=== PATIENT | female | born 1940 | race Caucasian/White ===

== ENCOUNTER 2017-06-29 16:23 | Inpatient (IN) | payer MEDICARE, MEDICAID ==
[~2017-06-29] VITALS: Ht 165.1 cm; Wt 64.9 kg
--- NOTE | 2017-06-29 16:40 | NUR ---
PT BIB RA FROM [facility] FOR ABNORMAL "BREATHING SOUNDS" AND WARM TO TOUCH. NOTE AMS. SEEN BY MD FOR EVAL. SAFETY AND COMFORT MEASURES PROVIDED. WILL MONITOR.
--- NOTE | 2017-06-29 16:45 | NUR ---
IV ACCESS STARTED. BLOOD DRAWN FOR LABS.
[2017-06-29] MEDS ORDERED: MULT-24 PO (16:51)
[2017-06-29] MEDS ORDERED: ACET-868 PO (16:51)
[2017-06-29] MEDS ORDERED: MAGN400O6 PO (16:51)
[2017-06-29] MEDS ORDERED: CHOL100044 PO (16:51)
[2017-06-29] MEDS ORDERED: BLOO-668 IN (16:51)
[2017-06-29] MEDS ORDERED: BISA-79 PO (16:51)
[2017-06-29] MEDS ORDERED: LEVE250T2 PO (16:51)
[2017-06-29] MEDS ORDERED: BENA20TA2 PO (16:51)
[2017-06-29 16:55] LABS: BASOPHILS # (AUTO) 0.4 /CMM (0.0-0.2); BASOPHILS % (AUTO) 3.2 % (0.0-2.0); EOSINOPHILS # (AUTO) 0.2 /CMM (0.0-0.7); EOSINOPHILS % (AUTO) 1.1 % (0.0-6.0); HEMATOCRIT 42 % (33-45); HEMOGLOBIN 14.1 g/dL (11.5-14.8); LYMPHOCYTES # (AUTO) 1.5 /CMM (0.8-4.8); LYMPHOCYTES % (AUTO) 10.4 % (20.0-44.0); MEAN CORPUSCULAR HEMOGLOBIN 30 PG (26.0-33.0); MEAN CORPUSCULAR HGB CONC 34 g/dl (31.0-36.0); MEAN CORPUSCULAR VOLUME 88 fL (82-100); MONOCYTES # (AUTO) 0.4 /CMM (0.1-1.30); MONOCYTES % (AUTO) 2.7 % (2.0-12.0); NEUTROPHILS # (AUTO) 11.5 /CMM (1.8-8.9); NEUTROPHILS % (AUTO) 82.6 % (43.0-81.0); PLATELET COUNT (AUTO) 418 /CMM (150-450); RDW COEFFICIENT OF VARIATION 12.7 (11.5-15.0); RED BLOOD CELL COUNT(AUTO) 4.74 MIL/uL (4.0-5.2)
--- NOTE | 2017-06-29 16:55 | NUR ---
URINE SAMPLE OBTAINED, SENT. PT MEDICATED ORDERED.
[2017-06-29] MEDS ORDERED: LEVOFLOXACIN 750 MG /D5W 150ML 150 ML IV ONE ×2 (16:57→17:00)
[2017-06-29] MEDS ORDERED: IV NS 0.9% 1,000 ML BAG IV ONE (17:00)
[2017-06-29] MEDS ORDERED: CEFTRIAXONE 1GM BAG (ER ONLY) 50 ML IV ONE (17:00)
[2017-06-29] MEDS ORDERED: VANCOMYCIN 1 GM in IV D5W 250 ML IV ONE (17:00)
--- NOTE | 2017-06-29 17:00 | NUR ---
CALLED NURSING SUP. FOR MARTIN BED
[2017-06-29 17:12] LABS: CALCIUM, SERUM 9.1 mg/dL (8.5-10.1); CARBON DIOXIDE 22 mmol/L (21-32); CHLORIDE 97 mmol/L (98-107); GLUCOSE 138 mg/dL (74-106); POTASSIUM 4.2 mmol/L (3.5-5.1); SODIUM SERUM 130 mmol/L (136-145); UREA NITROGEN, BLOOD 21 mg/dL (7-18)
[2017-06-29 17:16] LABS: INR 1.04 (0.87-1.13); PROTHROMBIN TIME 10.8 SECS (9.5-12.7)
[2017-06-29 17:19] LABS: APPEARANCE,URINE Clear (CLEAR); BILIRUBIN,URINE Negative (NEGATIVE); BLOOD, URINE Negative Ery/uL (NEGATIVE); COLOR,URINE Yellow (YELLOW); KETONES,URINE Negative (NEGATIVE); LEUKOCYTE ESTERASE ,URINE Trace (NEGATIVE); NITRITE, URINE Negative (NEGATIVE); PROTEIN,URINE Trace mg/dl (NEGATIVE); UGLUCOSE Negative (NEGATIVE); UROBILINOGEN,URINE 0.2 EU/dL (0.2)
[2017-06-29 17:22] LABS: TROPONIN I < 0.017 ng/mL (0.00-0.056)
[2017-06-29 17:40] LABS: RBC,URINE 0-2 /HPF (0-2)
[2017-06-29 17:41] LABS: BACTERIA,URINE Moderate /HPF (None Seen); SQUAMOUS EPITHELIAL CELL,UR Many /HPF (None Seen)
--- NOTE | 2017-06-29 18:08 | NUR ---
REPORT GIVEN TO EDSON ROMANO FOR MARTIN [id number]
--- NOTE | 2017-06-29 18:21 | NUR ---
DR DE LA VEGA ON THE PHONE WITH NUHA DUPONT, SAFETY SUPERVISOR FOR DR BRIONES
[2017-06-29 18:50] VITALS: BP 192/105
--- NOTE | 2017-06-29 18:55 | NUR ---
RN NOTE RECEIVED PT ON BED, AOX1, NONVERBAL, SNORING, ON ROOM AIR, SATURATION 93%, NO SOB, ON MOBILE TESTER, SR, 94, BP HIGH, 192/107 MMHG, IV R HAND 18 G, INTACT, INFUSING VANCOMYCIN, DR BRIONES EXCHANGE CALLED TO GET ORDERS. SAFETY MAINTAINED, BED ALARM ON, BED IN LOW AND LOCKED POSITION, CALL LIGHT WITHIN REACH WILL ENDORSE TO SENIOR ACCOUNTANT ANALYST NURSE.
[2017-06-29] MEDS ORDERED: IPRATROPIUM NEB FS 0.5 MG/2.5 ML AMPUL.NEB NEB PRN (19:30)
[2017-06-29] MEDS ORDERED: *INSULIN REGULAR(HUMULIN R)HUM 100 UNIT/ML VIAL SQ PRN (19:30)
[2017-06-29] MEDS ORDERED: DEXTROSE 50%-WATER 50 ML DISP.SYRIN IV PRN (19:30)
[2017-06-29] MEDS ORDERED: IV NS 0.9% 1,000 ML BAG IV PRN (19:30)
[2017-06-29] MEDS ORDERED: ENALAPRILAT DIHYD. (2.5MG/ML) 1.25 MG/ML VIAL IV ONE (19:30)
[2017-06-29] MEDS ORDERED: ALBUTEROL FS 2.5 MG/0.5 ML VIAL.NEB NEB PRN (19:30)
[2017-06-29 20:00] VITALS: BP 181/98
--- NOTE | 2017-06-29 20:00 | NUR ---
MARTIN RN NOTES ]RECEIVED PTS ON BED AWAKE AND RESPONSIVE .NON VERBAL .ON TELE SR ON THE MONITOR ,ON R/.A SATING 97% .NO SOB NO DISTRESS NOTED , ADMITTED WITH DX. OF ALOC , UNDER DR BRIONES , PTS IS NPO STATUS AT THIS TIME FOR SWALLOW EVAL IN AM. V/S BP 181/98 - VASOTEC 2.5 MG GIVEN IV X1 ORDERED , PTS IS AFEBRILE , ALL ORDER CARRIED OUT , ALL NEEDS ATTENDED TO CALL LIGHT WITHIN REACH KEPT PTS CLEAN DRY AND COMFORTABLE, BODY CHECK DONE , ONLY LEFT FA SCAB NOTED , ON IV HEPLOCK ON R HAND G#18 INTACT AND PATENT IVF OF NS AT 70CC/HR WELL TOLERATED, WILL CONTINUE TO MONITOR BLOOD PRESSURE.
[2017-06-29 20:11] LABS: BILIRUBIN,TOTAL 0.2 mg/dL (0.2-1.0)
[2017-06-29 21:00] VITALS: BP 160/76
[2017-06-29] MEDS: IV NS 0.9% 1,000 ML IV PRN (21:07)
[2017-06-29] MEDS: BLOOD SUGAR DIAGNOSTIC 1 EACH STRIP VI SCH (22:43)
[2017-06-29 23:48] VITALS: BP 170/89
[2017-06-30] VITALS (8 sets, daily range): BP systolic 127–170; BP diastolic 56–93
[2017-06-30] MEDS: ENALAPRILAT INJ (1.25 MG/ML) 1.25 MG/ML VIAL IV PRN ×2 (00:41→09:16)
--- NOTE | 2017-06-30 06:22 | NUR ---
jazlyn rn notes pts remains on ivf ns at 70cc/hr infusing well npo status , will endorse to rn day shift re advance directives - dnr to be order by md ,and home medication po if to be continue ,pts last bp is 158/86. for swallow eval today.
[2017-06-30] MEDS: BLOOD SUGAR DIAGNOSTIC 1 EACH STRIP VI SCH ×2 (07:06→13:19)
[2017-06-30] MEDS: INSULIN REGULAR, HUMAN 100 UNIT/ML 3 ML VIAL SQ PRN ×3 (07:08→17:10)
--- NOTE | 2017-06-30 07:08 | NUR ---
MARTIN RN NOTES BLOOD SUGAR FOR 730AM IS 130 MG/DL =NO INSULIN COVERAGE GIVEN PTS REMAINS ON IV FLUIDS AND NPO STATUS.ENDORSE TO RN DAY SHIFT .
--- NOTE | 2017-06-30 07:15 | NUR ---
MARTIN RN INITIAL NOTES: REC'D PT ON BED, NOT IN ANY DISTRESS, NON VERBAL. PT ON ROOM AIR, NO SOB BUT NOTED TO HAVE SECRETIONS ON MOUTH, SUCTIONED PRN. ON TELEMONITOR, HAS Irish LACY G18 PL W/ NS AT 70 CC/HR INFUSING WELL W/ NO S/SX OF INFECTION/ INFILTRATION NOTED. PROVIDED COMFORT & SAFETY MEASURES. BED KEPT LOW & IN LOCKED POS. CALL LIGHT PLACED W/IN REACH. HOB KEPT ELEVATED. WILL CONTINUE TO MONITOR. Addendum: 07/01/17 at 0849 by POLINA GUTIERREZ RN CORRECTION: HAS Nancy LACY G18 PL.
[2017-06-30] MEDS ORDERED: CEFTRIAXONE 1GM BAG (ER ONLY) 1 GM/50 ML PIGGYBACK IV SCH (09:00)
--- NOTE | 2017-06-30 10:00 | NUR ---
RN NOTES: SPOKE W/ ALEK ([phone]), CONFIRMED DNR CODE STATUS. DR. WALLS (RN PERITONEAL DIALYSIS FOR DR. BRIONES) MADE AWARE.
[2017-06-30] MEDS ORDERED: hydrALAZINE HCL IV 20 MG VIAL IV PRN (12:00)
[2017-06-30] MEDS ORDERED: CEFEPIME 1 GM in IV D5W 50 ML IV SCH (12:00)
--- NOTE | 2017-06-30 12:01 | NUR ---
RN NOTES: DR. WALLS MADE AWARE THAT AT [facility] PT WAS ON PUREED MICHAELA DIET. MD ORDERED TO KEEP NS 1L X 70 CC/HR FOR NOW. ST TO EVALUATE SWALLOW.
--- NOTE | 2017-06-30 12:30 | NUR ---
RN NOTES: DR. WALLS MADE AWARE THAT PT FAILED SWALLOW EVALUATION, ORDERED TO KEEP PT NPO FOR NOW AND KEEP IVF NS.
[2017-06-30] MEDS ORDERED: FEE PK DOSING 1 MIN EA MC ONE (12:41)
[2017-06-30] MEDS: IPRATROPIUM NEB FS 0.5 MG/2.5 ML AMPUL.NEB NEB SCH ×2 (13:02→19:30)
[2017-06-30] MEDS: FAMOTIDINE/PF INJ 20 MG/2 ML VIAL IV SCH (13:03)
[2017-06-30] MEDS: IV NS 0.9% 1,000 ML IV PRN (13:03)
[2017-06-30] MEDS: ALBUTEROL FS 2.5 MG/3 ML VIAL.NEB NEB SCH ×2 (13:03→19:30)
[2017-06-30] MEDS: LEVETIRACETAM (500MG) 250 MG in IV NS 0.9% 100 ML IV SCH ×2 (13:03→21:15)
[2017-06-30] MEDS: ENOXAPARIN SODIUM 40 MG/0.4 ML DISP.SYRIN SQ SCH (13:05)
[2017-06-30] MEDS: VANCOMYCIN 1 GM in IV D5W 250 ML IV SCH (13:20)
[2017-06-30] MEDS: CEFEPIME 1 GM in IV D5W 50 ML IV SCH (14:15)
[2017-06-30] MEDS ORDERED: DEXTROSE 50%-WATER 50 ML DISP.SYRIN IV PRN (15:00)
[2017-06-30] MEDS ORDERED: CEFTRIAXONE 1 G in IV D5W 50 ML IV SCH (17:00)
[2017-06-30] MEDS: BLOOD SUGAR DIAGNOSTIC 1 EACH STRIP IN SCH (17:09)
[2017-06-30] MEDS ORDERED: BLOOD SUGAR DIAGNOSTIC 1 EACH STRIP VI SCH (18:00)
--- NOTE | 2017-06-30 18:52 | NUR ---
MARTIN RN CLOSING NOTES: NO ACUTE CHANGES NOTED W/IN SHIFT. PT IS MORE AWAKE. SATURATING 100% WHILE ON O2 AT 2LPM/NC . SECRETIONS SUCTIONED. RFA G22 PL KEPT PATENT & INTACT W/ NS AT 70 CC/HR INFUSING WELL W/ NO S/SX OF INFECTION/ INFILTRATION NOTED. KEPT NPO DUE TO FAILED SWALLOW TEST. KEPT WELL RESTED. BED KEPT LOW & IN LOCKED POS. CALL LIGHT PLACED W/IN REACH. NEEDS ATTENDED. ENDORSED TO PM RN FOR JAYLEEN.
[2017-07-01] VITALS: BP 99/50
[2017-07-01] MEDS: BLOOD SUGAR DIAGNOSTIC 1 EACH STRIP IN SCH ×4 (00:09→18:04)
--- NOTE | 2017-07-01 02:26 | NUR ---
RN NOTES 0145 BLOOD CULTURE GRAM POSITIVE COCCI; ON VANCOMYCIN AND CEFEPIME WILL NOTIFY
[2017-07-01 04:00] VITALS: BP_SYST 130; BP_SYST 99; BP_DIAS 50; BP_DIAS 72
[2017-07-01] MEDS: IV NS 0.9% 1,000 ML IV PRN (06:00)
--- NOTE | 2017-07-01 06:50 | NUR ---
RN NOTES Condition unchanged during the night. Remains on NPO; po trial by ST only. Continue on IVF and antibiotics as ordered.IV site RFA patent and intact. Continue to require oxygen. Repositioned every 2hrs. Needs anticipated.
[2017-07-01] MEDS: VANCOMYCIN 1 GM in IV D5W 250 ML IV SCH (07:00)
[2017-07-01 07:07] LABS: BASOPHILS # (AUTO) 0.1 /CMM (0.0-0.2); BASOPHILS % (AUTO) 0.6 % (0.0-2.0); EOSINOPHILS # (AUTO) 0.1 /CMM (0.0-0.7); EOSINOPHILS % (AUTO) 1.6 % (0.0-6.0); HEMATOCRIT 36 % (33-45); HEMOGLOBIN 12.7 g/dL (11.5-14.8); LYMPHOCYTES # (AUTO) 2.1 /CMM (0.8-4.8); LYMPHOCYTES % (AUTO) 23.2 % (20.0-44.0); MEAN CORPUSCULAR HEMOGLOBIN 31 PG (26.0-33.0); MEAN CORPUSCULAR HGB CONC 35 g/dl (31.0-36.0); MEAN CORPUSCULAR VOLUME 89 fL (82-100); MONOCYTES # (AUTO) 0.9 /CMM (0.1-1.30); MONOCYTES % (AUTO) 10.2 % (2.0-12.0); NEUTROPHILS # (AUTO) 5.7 /CMM (1.8-8.9); NEUTROPHILS % (AUTO) 64.4 % (43.0-81.0); PLATELET COUNT (AUTO) 322 /CMM (150-450); RDW COEFFICIENT OF VARIATION 13.5 (11.5-15.0); RED BLOOD CELL COUNT(AUTO) 4.08 MIL/uL (4.0-5.2); WHITE BLOOD COUNT (AUTO) 8.9 K/uL (4.3-11.0)
--- NOTE | 2017-07-01 07:10 | NUR ---
MARTIN RN INITIAL NOTES: REC'D PT ON BED, NOT IN ANY DISTRESS, NON VERBAL, AWAKE. PT ON O2 AT 2LPM/NC, NO SOB. ON TELEMONITOR, SR. HAS RFA G22 PL W/ NS AT 70 CC/HR INFUSING WELL W/ NO S/SX OF INFECTION/ INFILTRATION NOTED. PROVIDED COMFORT & SAFETY MEASURES. BED KEPT LOW & IN LOCKED POS. CALL LIGHT PLACED W/IN REACH. HOB ELEVATED. WILL CONTINUE TO MONITOR.
[2017-07-01] MEDS: ALBUTEROL FS 2.5 MG/3 ML VIAL.NEB NEB SCH ×3 (07:13→19:20)
[2017-07-01] MEDS: IPRATROPIUM NEB FS 0.5 MG/2.5 ML AMPUL.NEB NEB SCH ×3 (07:14→19:20)
[2017-07-01 07:29] LABS: ALANINE AMINOTRANSFERASE 18 U/L (12-78); ALBUMIN 2.8 g/dL (3.4-5.0); ALKALINE PHOSPHATASE 101 U/L (46-116); ASPARTATE AMINOTRANSFERASE 19 U/L (15-37); BILIRUBIN,TOTAL 0.5 mg/dL (0.2-1.0); CALCIUM, SERUM 8.6 mg/dL (8.5-10.1); CARBON DIOXIDE 27 mmol/L (21-32); CHLORIDE 105 mmol/L (98-107); CREATININE 0.8 mg/dL (0.6-1.3); GLUCOSE 93 mg/dL (74-106); POTASSIUM 4.1 mmol/L (3.5-5.1); SODIUM SERUM 138 mmol/L (136-145); TOTAL PROTEIN, SERUM 6.7 g/dL (6.4-8.2); UREA NITROGEN, BLOOD 10 mg/dL (7-18)
[2017-07-01 07:38] LABS: THYROID STIMULATING HORMONE 1.442 uIU/mL (0.358-3.74)
[2017-07-01 08:00] VITALS: BP 135/69
[2017-07-01] MEDS: FAMOTIDINE/PF INJ 20 MG/2 ML VIAL IV SCH (08:27)
[2017-07-01] MEDS: ENOXAPARIN SODIUM 40 MG/0.4 ML DISP.SYRIN SQ SCH (08:34)
--- NOTE | 2017-07-01 09:40 | NUR ---
RN NOTES: PT SEEN & EXAMINED BY DR. WALLS W/ ORDERS - RN TO TRY EVALUATE SWALLOW PT AGAIN.
[2017-07-01] MEDS: LEVETIRACETAM (500MG) 250 MG in IV NS 0.9% 100 ML IV SCH ×2 (09:44→20:49)
--- NOTE | 2017-07-01 10:00 | NUR ---
RN NOTES: TRIED DOING SWALLOW EVALUATION TO THE PT PER MD'S ORDER. PT IS MORE AWAKE NOW BUT PT IS REFUSING TO OPEN HER MOUTH, STILL NOTED COUGHING WHEN GIVEN SMALL AMOUNT. WILL RE-ORDER SWALLOW EVALUATION.
[2017-07-01] MEDS: IV D5/ 0.9% NACL 1,000 ML IV SCH (10:15)
[2017-07-01 12:00] VITALS: BP 147/62
[2017-07-01] MEDS: INSULIN REGULAR, HUMAN 100 UNIT/ML 3 ML VIAL SQ PRN ×2 (12:30→18:06)
[2017-07-01] MEDS: CEFEPIME 1 GM in IV D5W 50 ML IV SCH (13:06)
[2017-07-01 16:00] VITALS: BP 147/67
[2017-07-01] MEDS: VANCOMYCIN 0.75 GM in IV D5W 250 ML IV SCH (18:04)
--- NOTE | 2017-07-01 19:04 | NUR ---
MARTIN RN CLOSING NOTES: NO ACUTE CHANGES NOTED W/IN SHIFT. PT IS MORE AWAKE. SATURATING 100% WHILE ON O2 AT 2LPM/NC . SECRETIONS SUCTIONED. RFA G22 PL KEPT PATENT & INTACT W/ D5NS AT 50 CC/HR INFUSING WELL W/ NO S/SX OF INFECTION/ INFILTRATION NOTED. STILL KEPT NPO. KEPT WELL RESTED. BED KEPT LOW & IN LOCKED POS. CALL LIGHT PLACED W/IN REACH. NEEDS ATTENDED. ENDORSED TO PM RN FOR JAYLEEN.
[2017-07-01 20:00] VITALS: BP 149/77
--- NOTE | 2017-07-01 21:01 | NUR ---
SPORTS CENTRE MANAGER: RECEIVED PT NOT IN ANY DISTRESS, NON VERBAL, AWAKE. PT ON O2 AT 2LPM/NC, NO SOB. ON TELE MONITOR SHOWS SR. HAS RFA G22 RUNNING D5NS AT 50 ML/HR INFUSING WELL W/ NO S/SX OF INFECTION/ INFILTRATION NOTED. PROVIDED COMFORT & SAFETY MEASURES. BED KEPT LOW & IN LOCKED POS. CALL LIGHT PLACED W/IN REACH. HOB ELEVATED. ALL NEEDS ATTENDED. KEEP MONITORING....
[2017-07-02] VITALS: BP 133/90
[2017-07-02] MEDS: BLOOD SUGAR DIAGNOSTIC 1 EACH STRIP IN SCH ×4 (00:17→17:24)
[2017-07-02 04:00] VITALS: BP 145/66
[2017-07-02] MEDS: VANCOMYCIN 0.75 GM in IV D5W 250 ML IV SCH ×2 (05:11→18:05)
[2017-07-02] MEDS: IV D5/ 0.9% NACL 1,000 ML IV SCH (05:12)
[2017-07-02 07:08] LABS: BASOPHILS # (AUTO) 0.1 /CMM (0.0-0.2); BASOPHILS % (AUTO) 0.7 % (0.0-2.0); EOSINOPHILS # (AUTO) 0.2 /CMM (0.0-0.7); EOSINOPHILS % (AUTO) 3.1 % (0.0-6.0); HEMATOCRIT 34 % (33-45); HEMOGLOBIN 11.8 g/dL (11.5-14.8); LYMPHOCYTES # (AUTO) 1.5 /CMM (0.8-4.8); MEAN CORPUSCULAR HEMOGLOBIN 31 PG (26.0-33.0); MEAN CORPUSCULAR HGB CONC 35 g/dl (31.0-36.0); MEAN CORPUSCULAR VOLUME 88 fL (82-100); MONOCYTES # (AUTO) 0.7 /CMM (0.1-1.30); MONOCYTES % (AUTO) 9.1 % (2.0-12.0); NEUTROPHILS # (AUTO) 5.2 /CMM (1.8-8.9); NEUTROPHILS % (AUTO) 68.1 % (43.0-81.0); PLATELET COUNT (AUTO) 282 /CMM (150-450); RDW COEFFICIENT OF VARIATION 13.4 (11.5-15.0); RED BLOOD CELL COUNT(AUTO) 3.82 MIL/uL (4.0-5.2); WHITE BLOOD COUNT (AUTO) 7.6 K/uL (4.3-11.0)
[2017-07-02] MEDS: ALBUTEROL FS 2.5 MG/3 ML VIAL.NEB NEB SCH ×3 (07:35→20:13)
[2017-07-02] MEDS: IPRATROPIUM NEB FS 0.5 MG/2.5 ML AMPUL.NEB NEB SCH ×3 (07:35→20:13)
[2017-07-02 07:42] LABS: CARBON DIOXIDE 27 mmol/L (21-32); CHLORIDE 104 mmol/L (98-107); CREATININE 0.7 mg/dL (0.6-1.3); GLUCOSE 115 mg/dL (74-106); POTASSIUM 3.8 mmol/L (3.5-5.1); SODIUM SERUM 138 mmol/L (136-145); UREA NITROGEN, BLOOD 8 mg/dL (7-18)
[2017-07-02 08:00] VITALS: BP 145/64
[2017-07-02] MEDS: LEVETIRACETAM (500MG) 250 MG in IV NS 0.9% 100 ML IV SCH ×2 (09:32→21:24)
[2017-07-02] MEDS: ENOXAPARIN SODIUM 40 MG/0.4 ML DISP.SYRIN SQ SCH (09:35)
[2017-07-02] MEDS: FAMOTIDINE/PF INJ 20 MG/2 ML VIAL IV SCH (10:13)
--- NOTE | 2017-07-02 11:00 | NUR ---
WOUND CARE CONSULT PATIENT SEEN AND SKIN INTEGRITY ASSESSMENT DONE. PATIENT PRESENTS WITH INTACT SKIN AT THIS TIME. PATIENT WITH CURRENT MADDIE AT 9. PATIENT ON GELY ISOFLEX LOW AIRLOSS SPECIALTY BED FOR SKIN MANAGEMENT. RECOMMEND TURNING SCHED Q 2 HOURS, BILATERAL HEEL FLOATING, Z GUARD FOR SKIN/MOISTURE MANAGEMENT. ALL DISCUSSED WITH NURSING AND DIRECTOR OF OPERATIONS HOME HEALTH AT THE BEDSIDE. WILL SEE PRN. Addendum: 07/02/17 at 1103 by LIZZ IBRAHIM WNDNU Amended: Links added.
[2017-07-02] MEDS ORDERED: Z GUARD REMEDY 2 OZ OINT TP PRN (11:30)
[2017-07-02 12:00] VITALS: BP 134/58
[2017-07-02] MEDS: Z GUARD REMEDY 2 OZ OINT TP SCH (12:22)
[2017-07-02] MEDS: CEFEPIME 1 GM in IV D5W 50 ML IV SCH (13:31)
[2017-07-02 16:00] VITALS: BP 152/63
[2017-07-02 20:00] VITALS: BP 161/74
--- NOTE | 2017-07-02 20:00 | NUR ---
MARTIN RN NOTE PT IN BED ASLEEP, AROUSABLE, NON VERBAL. NO DISTRESS OR DISCOMFORT NOTED. NO S/S OF PAIN NOTED. IVF D5NS @ 50 ML/HR INFUSING WELL, NO S/S OF INFILTRATION NOTED. ON TELE SR HR 94. VSS. REPOSITION HER FOR SKIN MANAGEMENT AND COMFORT. SIDE RAILS UP X 2 AND CALL LIGHT WITHIN REACH. CONTINUE TO MONITOR HER.
[2017-07-03] VITALS (8 sets, daily range): BP systolic 106–167; BP diastolic 57–75
[2017-07-03] MEDS: IV D5/ 0.9% NACL 1,000 ML IV SCH (04:45)
[2017-07-03] MEDS: VANCOMYCIN 0.75 GM in IV D5W 250 ML IV SCH ×2 (05:54→17:47)
--- NOTE | 2017-07-03 06:42 | NUR ---
MARTIN RN NOTE NO CHANGE IN CONDITION. NO DISTRESS OR DISCOMFORT NOTED. ON TELE SR. SIDE RAILS UP X 3 AND CALL LIGHT WITHIN REACH. WILL ENDORSE TO DAY SHIFT NURSE FOR CONTINUE TO CARE.
[2017-07-03] MEDS: ALBUTEROL FS 2.5 MG/3 ML VIAL.NEB NEB SCH ×2 (07:17→14:04)
[2017-07-03] MEDS: IPRATROPIUM NEB FS 0.5 MG/2.5 ML AMPUL.NEB NEB SCH ×2 (07:17→14:04)
--- NOTE | 2017-07-03 07:41 | NUR ---
RN NOTES: (INITIAL NOTES) PATIENT RECEIVED IN STABLE CONDITION AWAKE. RESPONSIVE TO VERBAL & TACTILE STIMULI. NON VERBAL. ON OXYGEN 2LPM VIA NC. BREATHING PATTERN REGULAR. ON TELE MONITOR SINUS RHYTHM. IV SITE INTACT, RUNNING WITH IV FLUIDS ORDERED. NPO STATUS. SAFETY MEASURES OBSERVED. CALL LIGHT WITHIN REACH. CONTINUE TO MONITOR.
[2017-07-03 07:49] LABS: CALCIUM, SERUM 8.1 mg/dL (8.5-10.1); CARBON DIOXIDE 28 mmol/L (21-32); CHLORIDE 106 mmol/L (98-107); CREATININE 0.7 mg/dL (0.6-1.3); GLUCOSE 122 mg/dL (74-106); POTASSIUM 3.9 mmol/L (3.5-5.1); SODIUM SERUM 141 mmol/L (136-145); UREA NITROGEN, BLOOD 5 mg/dL (7-18)
[2017-07-03] MEDS: FAMOTIDINE/PF INJ 20 MG/2 ML VIAL IV SCH (08:15)
[2017-07-03] MEDS: ENOXAPARIN SODIUM 40 MG/0.4 ML DISP.SYRIN SQ SCH (08:16)
[2017-07-03] MEDS: Z GUARD REMEDY 2 OZ OINT TP SCH (08:17)
[2017-07-03] MEDS: LEVETIRACETAM (500MG) 250 MG in IV NS 0.9% 100 ML IV SCH (08:42)
[2017-07-03] MEDS: CEFEPIME 1 GM in IV D5W 50 ML IV SCH (13:43)
--- NOTE | 2017-07-03 19:13 | NUR ---
RN NOTES: RECEIVED ORDERS TO TRANSFER [facility] BY DR. BRIONES. BERNADETTE AWARE. PT ADVANCED TO PUREED DIET, WITH HONEY THICK LIQUID. TOLERATED WELL 50%. NO NAUSEA VOMITING NOTED. PICTURES TAKEN AND PLACED IN THE CHART. SCARUM INTACT. CALLED TO GIVE REPORT TO [place], SAID TO CALL BACK AFTER 1930. REPORT GIVEN TO GETTER OPERATOR ASSIGNED RN FOR CONTINUITY OF CARE. DISCHARGE INSTRUCTION/EDUCATION/MED RECONCILE PRINTED & PLACED IN THE CHART.
--- NOTE | 2017-07-03 20:00 | NUR ---
MARTIN RN NOTE [facility] INFORMED ABOUT PT IS GOING TO BE TRANSFERRED TONIGHT TO THEM. REPORT GIVEN TO NURSE LUZMA [phone]. ALSO INFORMED WHO WAS VERY UPSET THAT MD DIDN'T CALLED HIM BEFORE THE TRANSFER. EXIT CARE AND ALL THE DISCHARGE DOCUMENTATION DONE BY DAY SHIFT NURSE.
--- NOTE | 2017-07-03 21:15 | NUR ---
MARTIN RN NOTE REQUESTING FOR DR BRIONES'S PHONE # WHICH IS PROVIDED TO HIM.
--- NOTE | 2017-07-03 21:33 | NUR ---
MARTIN RN NOTE [facility] PERSONAL CAME REPORT GIVEN. TO THEM. PT IS TRANSFERED TO [facility] VIA GURNEY FROM THE ROOM, PT IN NO STRESS OR DISCOMFORT.
== END 2017-07-03 21:43 | disposition short-term general hospital (02) | DRG 871 ==
LOC: ER 16:26 → TELE-TD 17:45
PROVIDERS: ADMIT Internal Medicine; ATTEND Internal Medicine
DX: A41.9 Sepsis, unspecified organism (principal); J69.0 Pneumonitis due to inhalation of food and vomit; G93.40 Encephalopathy, unspecified; E46 Unspecified protein-calorie malnutrition; N39.0 Urinary tract infection, site not specified; Z66 Do not resuscitate; E55.9 Vitamin D deficiency, unspecified; E11.9 Type 2 diabetes mellitus without complications; F02.80 Dementia in other diseases classified elsewhere, unspecified severity, without behavioral disturbance, psychotic disturbance, mood disturbance, and anxiety; G30.9 Alzheimer's disease, unspecified; I10 Essential (primary) hypertension; M41.9 Scoliosis, unspecified; R13.10 Dysphagia, unspecified; Z79.899 Other long term (current) drug therapy; K59.00 Constipation, unspecified; J40 Bronchitis, not specified as acute or chronic; G40.409 Other generalized epilepsy and epileptic syndromes, not intractable, without status epilepticus
CPT/HCPCS: 36415; 71010-TC; 80048-TC; 80053-TC; 80202-TC; 81000-TC; 82247-TC; 82248-TC; 82962-TC; 83605-TC; 84443-TC; 84484-TC; 85025-TC; 85730-TC; 87040-TC; 87081-TC; 87086-TC; 87186-TC; 92521; 92526; 92611-TC; 94799-TC; A4606; J0360; J0692; J0696; J1650; J1815; J1953; J1956; J3370; J3490; J7030; J7042; J7060; Z7610